=== PATIENT | female | born 1960 | race Caucasian/White ===

== ENCOUNTER 2023-07-31 11:01 | Outpatient (RCR) | payer OTHER, SELFPAY | END 2023-07-31 23:59 | disposition home or self-care (01) | LOC: RPT 11:01 | PROVIDERS: ATTENDING PHYSICIAN Orthopaedic Surgery; FAMILY PHYSICIAN Family Medicine | DX: Z47.89 Encounter for other orthopedic aftercare (principal); M25.562 Pain in left knee; Z73.6 Limitation of activities due to disability | CPT/HCPCS: 97010; 97110; 97140; 97162; 97530 ==

== ENCOUNTER 2023-08-21 10:00 | Outpatient (RCR) | payer OTHER, SELFPAY | END 2023-08-21 23:59 | disposition home or self-care (01) | LOC: RPT 10:00 | PROVIDERS: ATTENDING PHYSICIAN Orthopaedic Surgery; FAMILY PHYSICIAN Family Medicine | DX: M25.562 Pain in left knee (principal); Z73.6 Limitation of activities due to disability; Z98.890 Other specified postprocedural states | CPT/HCPCS: 97010; 97110; 97140; 97530 ==

== ENCOUNTER → 2023-09-13 06:32 | Day surgery (SDC) | payer OTHER, SELFPAY | LOC: GI 06:32 | PROVIDERS: ATTENDING PHYSICIAN Internal Medicine Gastroenterology; FAMILY PHYSICIAN Family Medicine | DX: Z12.11 Encounter for screening for malignant neoplasm of colon (principal); Z83.719 Family history of colon polyps, unspecified | CPT/HCPCS: G0105 ==

== ENCOUNTER → 2024-03-20 06:43 | Outpatient (REF) | payer OTHER, SELFPAY | LOC: HWRAD 06:43 | PROVIDERS: ATTENDING PHYSICIAN Internal Medicine Endocrinology, Diabetes & Metabolism; FAMILY PHYSICIAN Family Medicine | DX: E04.2 Nontoxic multinodular goiter (principal) | CPT/HCPCS: 76536 ==

== ENCOUNTER → 2024-05-21 11:01 | Outpatient (REF) | payer OTHER, SELFPAY | LOC: WDC 11:01 | PROVIDERS: ATTENDING PHYSICIAN Family Medicine | DX: Z12.31 Encounter for screening mammogram for malignant neoplasm of breast (principal) | CPT/HCPCS: 77063; 77067 ==

== ENCOUNTER 2024-12-19 15:27 | Emergency (ER) | payer OTHER, SELFPAY ==
[2024-12-19 15:30] VITALS: BP 147/93
--- NOTE | 2024-12-19 16:50 | ED.MUSCINJ ---
HPI-Injury
General
Chief Complaint: Fall
Source: patient
Exam Limitations: none
Time Seen by Provider: 12/19/24 16:07
Nursing documentation reviewed up to this point in time: agreed with
History of Present Illness-Injury
Is this injury a work related problem?: No
Is pt an associate of [facility]/[place]?: No
Initial Injury comments:
Patient states she slipped on water and fell in her kitchen Hit right forehead on stool. No LOC. SMall hematoma to site. Reports bruising to left upper arm. COmplains of pain to right foot and ant. ankle. SHe reports mild discomfort to left
hip. Brought to ED by spouse for eval. 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
Past History
Past History
ED Past Medical History: Other (Leiden factor V)
ED Past Surgical History: None
Social History
Tobacco: Non-smoker
Review of Systems
Review of Systems
Allergies reviewed?: Yes
All Other Systems: ROS reviewed and negative except as documented in HPI and ROS
Constitutional: Reports no symptoms
EENT: Reports no symptoms
Respiratory: Reports no symptoms
Cardiac: Reports no symptoms
ABD/GI: Reports no symptoms
: Reports no symptoms
Musculoskeletal: Reports joint pain (Pain right foot and ankle. Mild discomfort left hip)
Skin: Reports other (hematoma left forehead, left upper arm)
Neurological: Reports no symptoms
Psychiatric: Reports no symptoms
Musculoskeletal Injury Exam
Musculoskeletal Injury Exam
Right Foot:
Pain with Movement?: Moderate
Tender to palpation?: Moderate
Soft tissue swelling?: None
External deformity and angulation?: None
Joint effusion?: None
Contusion?: Moderate
Hematoma-local bleeding into tissue?: Mild
Strain- Sprain- Tear (Connective tissue injury)?: Moderate
Crepitus with movement?: No
Joint instability?: No
Malalignment/deformity?: No
Range of motion: Full
Distal skin color and temperature: normal-warm & good color
Capillary Refill: normal
Normal distal neurovascular exam?: Yes
Right Ankle:
Pain with Movement?: Mild
Tender to palpation?: Mild
Soft tissue swelling?: None
External deformity and angulation?: None
Joint effusion?: None
Contusion?: Mild
Hematoma-local bleeding into tissue?: None
Strain- Sprain- Tear (Connective tissue injury)?: Mild
Crepitus with movement?: No
Joint instability?: No
Malalignment/deformity?: No
Range of motion: Full
Distal skin color and temperature: normal-warm & good color
Capillary Refill: normal
Normal distal neurovascular exam?: Yes
Peripheral Pulses: posterior tibial (right): 3+ and dorsalis pedis (right): 3+
Left Hip:
Pain with Movement?: None
Tender to palpation?: Mild
Soft tissue swelling?: None
External deformity and angulation?: None
Joint effusion?: None
Contusion?: Mild
Hematoma-local bleeding into tissue?: None
Strain- Sprain- Tear (Connective tissue injury)?: None
Crepitus with movement?: No
Joint instability?: No
Malalignment/deformity?: No
Range of motion: Full
Distal skin color and temperature: normal-warm & good color
Capillary Refill: normal
Normal distal neurovascular exam?: Yes
Left Upper Arm:
Pain with Movement?: None
Tender to palpation?: Mild
Soft tissue swelling?: None
External deformity and angulation?: None
Joint effusion?: None
Contusion?: Mild
Hematoma-local bleeding into tissue?: Mild
Strain- Sprain- Tear (Connective tissue injury)?: None
Crepitus with movement?: No
Joint instability?: No
Malalignment/deformity?: No
Range of motion: Full
Distal skin color and temperature: normal-warm & good color
Capillary Refill: normal
Normal distal neurovascular exam?: Yes
Phy Exam
General Physical Exam
General Presentation: well appearing and no apparent distress
General age: appears stated age
General Skin: warm and dry
General Habitus: normal
General Mental: alert
Neurological Exam
Neurological Exam: alert, oriented x3, no motor deficits, no sensory deficits and speech normal
Musculoskeletal Exam
Musculoskeletal Exam: full ROM and neuro vasc intact
Skin Exam
Skin Exam: normal color, warm/dry and no rash
Psychiatric Exam
Psychiatric Exam: normal mood/affect
Injury Course
Orders/Labs/Results
Orders:
Orders
12/19/24 16:36
CT Head W/o Iv Contrast Urgent
Comment:
Reason For Exam: trauma
Ankle, Right 3 view CR [CR Ankle - Right Min 3 Views *] Urgent
Comment:
Reason For Exam: trauma
12/19/24 16:37
Foot, Right 3 View [CR Foot - Right Min 3 Views] Urgent
Comment:
Reason For Exam: trauma
12/19/24 18:48
Ortho Boot Right- Treatment ONCE
Short or tall?: Short
*Radiology
Radiology exam reviewed: radiology read reviewed
*Pulse Oximetry
SaO2: 97
Oxygen Mode of Delivery: Room air
Patient hypoxic: no
*Critical Care Note
Total Time (30-74mins, 75-104mins- exclusive of procedures): Not Applicable
Update Note
Update Note:
Patient to ED s/p fall. Hit left forehead on stool, no LOC. Pain to right foot and ankle. All imaging reviewed. CT neg for intracranial injury. Left frontal hematoma noted. Xrays reviewed by me. No acute findings noted. WIll place in ortho
boot, continue rest and ice. SHe will followup [facility] if her symptoms do not improve over the next week. Given instruction on s/s to rturn to ED and she is agreeable to plan.
ED Attending Note
-
Portions of this chart may have been created with voice recognition software.� Occasional wrong word or��sound alike� substitutions may have occurred due to the inherent limitations of voice recognition software.
Discharge Plan
Departure
Patient Disposition: Home (Routine Discharge)
Date of Disposition: 12/19/24
Time of Disposition: 18:49
Patient with high blood pressure during this ER visit?: No
Condition: Good
Covid-19: Not Applicable
Discharge Problem:
Ankle sprain, Foot sprain, Head injury
Instructions: Head Injury in Adults (DC), Contusion (DC), Preventing falls in adults, Ankle sprain - ED discharge instructions, Foot sprain - ED discharge instructions, RICE Therapy
Prescriptions:
No Action
riboflavin (vitamin B2) [Vitamin B-2] 100 MG tablet
200 mg PO DAILY
ascorbic acid (vitamin C) [Vitamin C] 500 MG tablet
500 - 1,000 mg PO DAILY
magnesium oxide 500 MG capsule
500 mg PO DAILY
calcium-vitamin D3-vitamin K 1 EACH tablet,chewable
1 tab PO DAILY
Eliquis 5 MG tablet
5 mg PO PRN PRN (Reason: only when she flies)
aspirin 81 mg Capsule
81 mg PO HS
Referrals:
Kallie Woody MD [Family Provider, Family Practice]
Manuel Camacho MD [Active, Orthopedics]
Referral Note: Follow up if your symptoms do not improve over the next week.
Interventions
Interventions:
*Risk Screen - Suicide Last Done: 12/19/24 15:30
*General Assessment Last Done: 12/19/24 15:30
*Neglect/Abuse Screening Last Done: 12/19/24 15:30
*ED- Fall Risk Assessment Last Done: 12/19/24 16:46
*ED COVID-19 Vaccine History Last Done: 12/19/24 16:46
ED-Musculoskeletal Assessment Last Done: 12/19/24 16:46
ED- Neurological Assessment Last Done: 12/19/24 16:46
ED-Skin Assessment Last Done: 12/19/24 16:46
Discharge Date and Time
Print Language: GHANAIAN
[2024-12-19 19:08] VITALS: BP 144/97
== END 2024-12-19 19:14 | disposition home or self-care (01) ==
LOC: EMR 15:27
PROVIDERS: EMERGENCY PHYSICIAN Emergency Medicine; FAMILY PHYSICIAN Family Medicine
DX: S93.401A Sprain of unspecified ligament of right ankle, initial encounter (principal); S93.601A Unspecified sprain of right foot, initial encounter; S09.90XA Unspecified injury of head, initial encounter; S40.022A Contusion of left upper arm, initial encounter; W01.0XXA Fall on same level from slipping, tripping and stumbling without subsequent striking against object, initial encounter; Y92.000 Kitchen of unspecified non-institutional (private) residence as the place of occurrence of the external cause; M79.671 Pain in right foot
CPT/HCPCS: 99284; 70450; 73610; 73630

== ENCOUNTER 2025-01-30 09:52 | Outpatient (RCR) | payer OTHER, SELFPAY | END 2025-01-30 23:59 | disposition home or self-care (01) | LOC: RPT 09:52 | PROVIDERS: ATTENDING PHYSICIAN Orthopaedic Surgery; FAMILY PHYSICIAN Family Medicine | DX: Z47.1 Aftercare following joint replacement surgery (principal); Z96.651 Presence of right artificial knee joint; Z73.6 Limitation of activities due to disability | CPT/HCPCS: 97010; 97110; 97140; 97163; 97530 ==

== ENCOUNTER 2025-02-27 10:54 | Outpatient (RCR) | payer OTHER, SELFPAY | END 2025-02-27 23:59 | disposition home or self-care (01) | LOC: RPT 10:54 | PROVIDERS: ATTENDING PHYSICIAN Orthopaedic Surgery; FAMILY PHYSICIAN Family Medicine | DX: Z47.1 Aftercare following joint replacement surgery (principal); Z96.651 Presence of right artificial knee joint; Z73.6 Limitation of activities due to disability | CPT/HCPCS: 97010; 97110; 97530 ==

== ENCOUNTER 2025-03-20 10:33 | Outpatient (RCR) | payer OTHER, SELFPAY | END 2025-03-20 23:59 | disposition home or self-care (01) | LOC: RPT 10:33 | PROVIDERS: ATTENDING PHYSICIAN Orthopaedic Surgery; FAMILY PHYSICIAN Family Medicine | DX: Z47.1 Aftercare following joint replacement surgery (principal); Z73.6 Limitation of activities due to disability; Z96.651 Presence of right artificial knee joint; R26.2 Difficulty in walking, not elsewhere classified; M62.81 Muscle weakness (generalized); R20.0 Anesthesia of skin | CPT/HCPCS: 97010; 97110; 97530 ==

== ENCOUNTER 2025-04-03 08:13 | Outpatient (RCR) | payer OTHER, SELFPAY | END 2025-04-04 06:34 | disposition home or self-care (01) | LOC: RPT 08:13 | PROVIDERS: ATTENDING PHYSICIAN Orthopaedic Surgery; FAMILY PHYSICIAN Family Medicine | DX: Z96.651 Presence of right artificial knee joint (principal); Z73.6 Limitation of activities due to disability; Z47.1 Aftercare following joint replacement surgery | CPT/HCPCS: 97110; 97530 ==

== ENCOUNTER → 2025-05-22 13:52 | Outpatient (REF) | payer OTHER, SELFPAY | LOC: WDC 13:52 | PROVIDERS: ATTENDING PHYSICIAN Family Medicine | DX: Z12.31 Encounter for screening mammogram for malignant neoplasm of breast (principal) | CPT/HCPCS: 77063; 77067 ==